=== PATIENT | male | born 1960 | race Two or more races ===

== ENCOUNTER 2017-12-19 22:19 | Inpatient (IN) | payer OTHER ==
[~2017-12-19] VITALS: Ht 167.6 cm; Wt 112.5 kg
[~2017-12-19 22:19] MED LIST: CIPRO500 MG PO; DILANTIN100 MG PO; DURICEF500 MG PO; INTEGRA PLUS C1 EACH PO; MUCINEX DM TABL1 BOX PO; PERCOCET 10-3251 TAB PO; PLAVIX75 MG PO; Septra DS PO; TRAMADOL HCL-AP1 TAB PO
[2017-12-19] MEDS ORDERED: LASIX20 MG (22:35)
[2017-12-19] MEDS ORDERED: DILANTIN100 MG (22:35)
[2017-12-19] MEDS ORDERED: ULTRACET (22:35)
[2017-12-19] MEDS ORDERED: PROVENTIL HFA6.7 GM (22:35)
[2017-12-26] MEDS ORDERED: DILANTIN100 MG PO (08:59)
[2017-12-26] MEDS ORDERED: KEPPRA500 MG PO (09:00)
[2017-12-26] MEDS ORDERED: CEPHALEXIN500 MG PO (09:01)
[2017-12-26] MEDS ORDERED: PLAVIX75 MG PO (10:09)
== END 2017-12-26 11:22 | disposition home or self-care (01) | DRG 300 ==
LOC: ER 22:19 → MEDJ 12-20 10:03 → SEC-K 12-20 10:03 → MEDI 12-20 14:05 → MEDJ 12-20 15:42
PROC: 30233N1 Transfusion of Nonautologous Red Blood Cells into Peripheral Vein, Percutaneous Approach (ICD-10-PCS; principal; 2017-12-21)
PROC: 8E0ZXY6 Isolation (ICD-10-PCS; 2017-12-23)
DX: I87.2 Venous insufficiency (chronic) (peripheral) (principal); L97.822 Non-pressure chronic ulcer of other part of left lower leg with fat layer exposed; L97.812 Non-pressure chronic ulcer of other part of right lower leg with fat layer exposed; L03.115 Cellulitis of right lower limb; G40.802 Other epilepsy, not intractable, without status epilepticus; I69.354 Hemiplegia and hemiparesis following cerebral infarction affecting left non-dominant side; Z95.0 Presence of cardiac pacemaker; D50.8 Other iron deficiency anemias; E11.9 Type 2 diabetes mellitus without complications; G93.89 Other specified disorders of brain; R07.89 Other chest pain; B95.61 Methicillin susceptible Staphylococcus aureus infection as the cause of diseases classified elsewhere; Z22.321 Carrier or suspected carrier of Methicillin susceptible Staphylococcus aureus

== ENCOUNTER → 2018-03-01 | Emergency (ER) | payer OTHER ==
[~2018-03-01] VITALS: Ht 167.6 cm; Wt 108.4 kg
[~2018-03-01] MED LIST changes: +CEPHALEXIN500 MG PO; +DILANTIN100 MG; +KEPPRA500 MG PO; +LASIX20 MG; +PROVENTIL HFA6.7 GM; +ULTRACET; +VASOTEC20 M1
== END | disposition designated cancer center or children's hospital (05) ==
LOC: ER 14:31
DX: E11.622 Type 2 diabetes mellitus with other skin ulcer (principal); L97.829 Non-pressure chronic ulcer of other part of left lower leg with unspecified severity; L97.819 Non-pressure chronic ulcer of other part of right lower leg with unspecified severity

== ENCOUNTER 2019-01-24 19:10 | Inpatient (IN) | payer OTHER ==
[~2019-01-24] VITALS: Ht 167.6 cm; Wt 108.0 kg
== END 2019-02-01 14:41 | disposition left against medical advice (07) | DRG 637 ==
LOC: ER 19:10 → MEDJ 01-25 09:51
PROVIDERS: ADMIT Internal Medicine
PROC: B246ZZZ Ultrasonography of Right and Left Heart (ICD-10-PCS; 2019-01-25)
PROC: 02HV33Z Insertion of Infusion Device into Superior Vena Cava, Percutaneous Approach (ICD-10-PCS; 2019-01-25)
PROC: 05HN33Z Insertion of Infusion Device into Left Internal Jugular Vein, Percutaneous Approach (ICD-10-PCS; principal; 2019-01-26)
PROC: B544ZZA Ultrasonography of Left Jugular Veins, Guidance (ICD-10-PCS; 2019-01-26)
DX: E11.622 Type 2 diabetes mellitus with other skin ulcer (principal); I50.43 Acute on chronic combined systolic (congestive) and diastolic (congestive) heart failure; L97.822 Non-pressure chronic ulcer of other part of left lower leg with fat layer exposed; L97.812 Non-pressure chronic ulcer of other part of right lower leg with fat layer exposed; K62.5 Hemorrhage of anus and rectum; L03.115 Cellulitis of right lower limb; L03.116 Cellulitis of left lower limb; I25.810 Atherosclerosis of coronary artery bypass graft(s) without angina pectoris; I69.354 Hemiplegia and hemiparesis following cerebral infarction affecting left non-dominant side; I74.3 Embolism and thrombosis of arteries of the lower extremities; I82.593 Chronic embolism and thrombosis of other specified deep vein of lower extremity, bilateral; I87.2 Venous insufficiency (chronic) (peripheral); D50.8 Other iron deficiency anemias; R07.89 Other chest pain; G93.89 Other specified disorders of brain; D72.828 Other elevated white blood cell count; I87.8 Other specified disorders of veins; I11.0 Hypertensive heart disease with heart failure; B96.5 Pseudomonas (aeruginosa) (mallei) (pseudomallei) as the cause of diseases classified elsewhere; Z79.01 Long term (current) use of anticoagulants; Z79.4 Long term (current) use of insulin; E11.22 Type 2 diabetes mellitus with diabetic chronic kidney disease; I12.9 Hypertensive chronic kidney disease with stage 1 through stage 4 chronic kidney disease, or unspecified chronic kidney disease; N18.2 Chronic kidney disease, stage 2 (mild); G40.909 Epilepsy, unspecified, not intractable, without status epilepticus

== ENCOUNTER 2019-05-12 21:36 | Inpatient (IN) | payer OTHER ==
[~2019-05-12] VITALS: Ht 165.1 cm; Wt 89.8 kg
--- NOTE | 2019-05-12 23:06 | NUR ---
PT ALERTA Y ORIENTADO X3 ESFERAS QUIEN REFIERE HX- EPILEPSIAS. SUFRIO JEFF EPILEPSIA A LAS 3PM Y REFIERE SE TERRY. AL LEVANTARSE INDICA LE COMENZO UN DOLOR DE PECHO Y SE LASTIMO LA PIERNA DERECHA. PT CON ULCERAS CRONICAS EN AMBAS PIERNAS. SE OBSERVAN VENDAJES LLENOS DE PUS, NEGROS Y LOS DEDOS DE LOS PIES EDEMAOMAS. OLOR PURULENTO INSOPORABLE. HX DX- EPILEPSIAS, CARDIACO-MARCAPASO.
--- NOTE | 2019-05-13 00:32 | NUR ---
SHARLENE CORONADO ORIENTA PTE SOBRE EL TRATAMIENTO ORDENADO POR EL DR KNUTSON PTE ALERTA Y CONCIENTE POR 3 SHARLENE CORONADO REALIZA MUESTRAS DE LABORATORIO Y ADMINISTRA MEDICAMENTO MONICA ORDENADO. PTE EN ESPERA DE EVALUACION POR SKIN TEAM
--- NOTE | 2019-05-13 07:27 | NUR ---
SE RECIBE PTE DLE TURNO ANTERIOR, EN CAMA NIVEL MAS BAJO MATHUR DE IDENTIFICACION Y BARANDAS ELEVADAS POR PRECAUCION. H/L PATENTE Y AFTAB DE EDEMA O ERITEMA. PENDIENTE A REALIZAR CULTIVOS DE ULCERAS, EVALUACION DE SKIN TEAM. PENDIENTE A CONSULTA CON TRABAJO SOCIAL, DR Rod DA SILVA Y DR Rod CAIN.
== END 2019-05-22 13:52 | disposition left against medical advice (07) | DRG 264 ==
LOC: ER 21:36 → SEC-K 05-13 14:47 → MEDJ 05-14 18:13
PROVIDERS: ADMIT Internal Medicine
PROC: 8E0ZXY6 Isolation (ICD-10-PCS; 2019-05-13)
PROC: 3E0F7GC Introduction of Other Therapeutic Substance into Respiratory Tract, Via Natural or Artificial Opening (ICD-10-PCS; 2019-05-13)
PROC: 0JBP0ZZ Excision of Left Lower Leg Subcutaneous Tissue and Fascia, Open Approach (ICD-10-PCS; principal; 2019-05-18)
PROC: 0JBN0ZZ Excision of Right Lower Leg Subcutaneous Tissue and Fascia, Open Approach (ICD-10-PCS; 2019-05-18)
DX: I83.015 Varicose veins of right lower extremity with ulcer other part of foot (principal); I83.025 Varicose veins of left lower extremity with ulcer other part of foot; L97.822 Non-pressure chronic ulcer of other part of left lower leg with fat layer exposed; L03.116 Cellulitis of left lower limb; L03.115 Cellulitis of right lower limb; I69.854 Hemiplegia and hemiparesis following other cerebrovascular disease affecting left non-dominant side; L02.416 Cutaneous abscess of left lower limb; L02.415 Cutaneous abscess of right lower limb; L97.812 Non-pressure chronic ulcer of other part of right lower leg with fat layer exposed; R60.0 Localized edema; Z86.718 Personal history of other venous thrombosis and embolism; B96.5 Pseudomonas (aeruginosa) (mallei) (pseudomallei) as the cause of diseases classified elsewhere; B96.4 Proteus (mirabilis) (morganii) as the cause of diseases classified elsewhere; B96.29 Other Escherichia coli [E. coli] as the cause of diseases classified elsewhere; B96.89 Other specified bacterial agents as the cause of diseases classified elsewhere; R06.02 Shortness of breath

== ENCOUNTER 2019-11-25 20:27 | Emergency (ER) | payer OTHER ==
[~2019-11-25] VITALS: Ht 167.6 cm; Wt 77.1 kg
[2019-11-25] MEDS ORDERED: PROVENTIL HFA6.7 GM (20:47)
[2019-11-25] MEDS ORDERED: DILANTIN100 MG (20:47)
[2019-11-25] MEDS ORDERED: LASIX20 MG (20:47)
== END 2019-11-26 06:26 | disposition home or self-care (01) ==
LOC: ER 20:27
DX: R06.02 Shortness of breath (principal)

== ENCOUNTER 2019-11-28 20:18 | Emergency (ER) | payer OTHER ==
[~2019-11-28] VITALS: Ht 167.6 cm; Wt 108.0 kg
[2019-11-28] MEDS ORDERED: METFORMIN HCL500 MG (20:40)
[2019-11-28] MEDS ORDERED: COZAAR25 MG (20:40)
== END 2019-11-28 23:40 | disposition home or self-care (01) ==
LOC: ER 20:18
DX: R07.89 Other chest pain (principal); R06.02 Shortness of breath; F41.8 Other specified anxiety disorders

== ENCOUNTER 2020-04-07 20:11 | Emergency (ER) | payer OTHER ==
[~2020-04-07] VITALS: Ht 167.6 cm; Wt 98.9 kg
[~2020-04-07 20:11] MED LIST changes: +COZAAR25 MG; +METFORMIN HCL500 MG
== END 2020-04-08 15:14 | disposition home or self-care (01) ==
LOC: ER 20:11
DX: L97.818 Non-pressure chronic ulcer of other part of right lower leg with other specified severity (principal); L97.828 Non-pressure chronic ulcer of other part of left lower leg with other specified severity; L03.116 Cellulitis of left lower limb; L03.115 Cellulitis of right lower limb; B96.89 Other specified bacterial agents as the cause of diseases classified elsewhere; B96.4 Proteus (mirabilis) (morganii) as the cause of diseases classified elsewhere; B95.61 Methicillin susceptible Staphylococcus aureus infection as the cause of diseases classified elsewhere; B96.5 Pseudomonas (aeruginosa) (mallei) (pseudomallei) as the cause of diseases classified elsewhere; Z03.818 Encounter for observation for suspected exposure to other biological agents ruled out; Z59.0 Homelessness